=== PATIENT | female | born 1965 | race Caucasian/White ===

== ENCOUNTER → 2017-01-25 | Outpatient (CLI) | payer BC ==
[~2017-01-25] MED LIST: CARDIZEM30 MG PO
--- NOTE | ~2017-01-25 | ESTC ---
Cardiac Perfusion Imaging Demographics Patient Name CYNTHIA Reddy Gender Female Patient Number [id number] Race Visit Number [id number] Ethnicity [employer] ID Room Number Accession Number [id number] Height 64 inches Date of 1965 Weight 119 pounds Interpreting Mohan Bahena Date of study 01/25/2017 Physician Supervising /DAHIANAP Jeanne Laureano APRN NM Technologist Ordering Physician Mohan Bahena Stress interactive video technician Stress ECG Reading Jeanne Laureano APRN Nurse Aniceto Sosa Physician RN Medications Reviewed with Patient prior to Procedure. Procedure Admit Source:Other. Procedure Type: Nuclear Stress Test:Exercise, Cardiolite Stress Test Procedure Start time: 01/25/2017 08:32 Indications: Chest pain. Risk Factors The patient risk factors include:former tobacco use and family history of premature CAD. Conclusions Impression ECG portion of exercise stress test is clinically nondiagnostic for ischemia by diagnostic criteria due to bseline ST depression in leads, II, III, aVF and V4-6. Patient exercised on the treadmill for 11 min using Wes protocol. Myocardial perfusion imaging is normal at peak stress. The resting images are non diagnostic. Overall left ventricular systolic function was normal without regional wall motion abnormalities. Calculated LVEF is 86% and TID ratio is 75%. Stress Protocols Resting ECG Pre-stress physical exam: Patient assessed by Nupur SANCHEZ prior to testing. Chest - CTA Cardio - RRR, S1, S2 Predicted HR: 168 bpm ECG Findings Indeterminate ECG due to baseline abnormalities. Arrhythmias No rhythm abnormality. Symptoms Shortness of breath. Complications Procedure complication: None. Stress Interpretation Patient exercised for 11 minutes through 4 stages of WES protocol. Appropriate hemodynamic response to exercise. Significant ST-T wave changes with exercise, max ST depression 2mm from baseline resting depression of 1mm. EKG portion is indeterminate for ischemia by diagnostic criteria due to baseline abnormalities. The Randolph Treadmill score was 1 .This corresponds to a moderate risk stress test. Will correlate with nuclear images. Imaging Results Summed scores - Summed stress score: 0 - Summed rest score: 5 - Summed difference score: -5 Stress ejection Ejection fraction:75 % EDV :83 ml ESV :21 ml Stroke volume :62 ml LV mass :107 gr Imaging Protocols Rest Stress Isotope:Tc99m Sestamibi IV Isotope: Tc99m Sestamibi IV Isotope dose:10.1 mCi Isotope dose:30.6 mCi Date:01/25/2017 07:45 Technique: SPECT Technique: Gated Supine SPECT Supine Scan Time:30 minutes post injection Scan Time:45-60 minutes post injection Medical History Admission Data Admission date: 01/25/2017 Admission Time: 07:18 Hospital Status: Outpatient. Signatures dtt: LARA FITZPATRICK dtd: 01/25/17 0832
--- NOTE | ~2017-01-25 | ECHO ---
Transthoracic Echocardiography Report (TTE) Demographics Patient Name JACQUELINE MARIE Date of Study 01/25/2017 Patient Number [id number] Visit Number [id number] Date of 1965 Room Number Gender Female Number Age 51 year(s) Referring Mohan Bahena Line Installer Trolley Cherry Arredondo RVT Physician Physician Interpreting Mohan Bahena Family Practitioner Physician MD Supervising Ordering Mohan Bahena MD/MLP Physician Nurse Stress Head Banquet Waitress Conclusions Contractility Score Summary Normal Left Ventricular contractility was noted. Summary Normal LV/RV size and systolic function. The estimated left ventricular ejection fraction is 60-65%. Mild septal left ventricular hypertrophy. Mild mitral annular calcification. Mild MV prolapse. Trivial MR. Procedure Type of Study TTE procedure:2D Echocardiogram. Procedure Date Date: 01/25/2017 Start: 09:28 AM Study Location: Echo Lab Technical Quality: Adequate visualization Indications:Chest pain. Appropriate Use Criteria: 9 Patient Status: Routine HR: 83 bpm BP: 156/69 mmHg M-Mode/2D Measurements LV Diastolic Dimension: 3.47 cm LV Systolic Dimension: 2.08 cm LV Septum Diastolic: 1.41 cm LV PW Diastolic: 1.05 cm AO Root Dimension: 2.6 cm Cardiac Output: 5.58 l/min AV Cusp Separation: 1.5 cm RV Diastolic Dimension: 2.55 cm LVOT: 2 cm LVOT VTI: 21.4 cm RV Base: 2.31 cm LV Stroke volume: 67.2 ml RV Length: 6.38 cm TAPSE: 2.49 cm TDI-S': 15.4 cm/s Doppler Measurements AV Peak Velocity: 1.51 m/s MV Peak E-Wave: 0.87 m/s AV Peak Gradient: 9.12 mmHg MV Peak A-Wave: 0.62 m/s AV Mean Gradient: 4 mmHg MV E/A Ratio: 1.4 LVOT Peak Velocity: 1.15 m/s MV P1/2t: 48 msec TR Gradient:26.83 mmHg PV Peak Velocity: 0.9 m/s Estimated RAP:10 mmHg PV Peak Gradient: 3.23 mmHg Estimated RVSP: 37 mmHg Estimated PASP: 36.83 mmHg E' Septal Velocity: 0.09 m/s A' Septal Velocity: 0.11 m/s E' Lateral Velocity: 0.18 m/s A' Lateral Velocity: 0.14 m/s Findings Left Ventricle Mild septal left ventricular hypertrophy. Right Ventricle Normal right ventricle structure and function. Left Atrium Normal left atrial size. Right Atrium Normal right atrial size. Mitral Valve Mild mitral annular calcification. Mild mitral valve prolapse. Trivial mitral regurgitation by color Doppler. Aortic Valve Normal aortic valve structure and function. Tricuspid Valve Mild tricuspid regurgitation by color Doppler. There is mild pulmonary hypertension. The pulmonary pressure (RVSP) is 37 mmHg. Pulmonic Valve Normal pulmonic valve structure and function. Pericardial Effusion No evidence of pericardial effusion. Miscellaneous Visualized portions of the aortic root and ascending aorta appear normal in size. Pleural Effusion No evidence of pleural effusion. Contractility Score LV regional wall motion:(0-Non visualized 1-Normal 2-Hypokinesis 3-Akinesis 4-Dyskinesis 5-Aneurysm) Signature dtt: LARA FITZPATRICK dtd: 01/25/17 0928
[2017-01-25 08:11] LABS: ALBUMIN 3.6 gm/dL (3.5-5.0); ALK PHOS 58 IU/L (33-138); ALT 16 IU/L (12-78); ANION GAP 10.7 (10.0-19.0); AST 18 IU/L (10-40); BLOOD UREA NITROGEN 13 mg/dL (6-24); CALCIUM 8.1 mg/dL (8.5-10.5); CHLORIDE 109 mMol/L (96-110); CO2 25 mMol/L (22-32); CREATININE 0.7 mg/dL (0.5-1.1); ESTIMATED GFR (MDRD EQUATION) > 60; POTASSIUM 3.7 mMol/L (3.7-5.1); SODIUM 141 mMol/L (135-145); TOTAL PROTEIN 6.9 g/dL (6.0-8.4)
== END | disposition disaster alternative care site (69) ==
LOC: GRAD 07:18
PROVIDERS: Internal Medicine Interventional Cardiology
DX: R07.9 Chest pain, unspecified (principal); I25.10 Atherosclerotic heart disease of native coronary artery without angina pectoris; I34.1 Nonrheumatic mitral (valve) prolapse; I51.7 Cardiomegaly; R06.02 Shortness of breath; Z87.891 Personal history of nicotine dependence; Z82.49 Family history of ischemic heart disease and other diseases of the circulatory system
CPT/HCPCS: A9500

== ENCOUNTER → 2017-04-10 | Outpatient (CLI) | payer BC ==
[2017-04-10 08:38] LABS: ANION GAP 8.7 (10.0-19.0); BLOOD UREA NITROGEN 11 mg/dL (6-24); CALCIUM 8.6 mg/dL (8.5-10.5); CHLORIDE 108 mMol/L (96-110); CO2 27 mMol/L (22-32); CREATININE 0.7 mg/dL (0.5-1.1); POTASSIUM 3.7 mMol/L (3.7-5.1); SODIUM 140 mMol/L (135-145)
== END ==
LOC: LNHI 08:21
PROVIDERS: Internal Medicine Interventional Cardiology
DX: I20.9 Angina pectoris, unspecified (principal); R00.2 Palpitations
CPT/HCPCS: Q9967

== ENCOUNTER → 2017-04-10 | Outpatient (CLI) | payer BC ==
--- NOTE | ~2017-04-10 | OR ---
PATIENT'S NAME: JACQUELINE MARIE [facility] AGE: 51 Y [address] ROOM: [place] [address] LOCATION: [facility]OC ADMIT DATE: 04/10/2017 OR/Procedure Report DISCHARGE DATE: FAMILY PHYSICIAN: Ingris Mckeon MD ATTENDING PHYSICIAN: LARA FITZPTARICK SURGEON: Lucho Finley MD SUPERVISOR INSTRUMENT MAINTENANCE: DATE OF PROCEDURE: 04/10/2017 PROCEDURE PERFORMED: CT angiogram. INDICATION FOR STUDY: Chest pain. DESCRIPTION OF PROCEDURE: The procedure was described to the patient and informed consent was obtained. Calcium scoring analysis was performed using 64-slice CT scanner. The total Agatston score is 0. Coronary CT angiogram was then performed. The patient was given 100 mL of Isovue-[address] angiogram. FINDINGS: The left main coronary artery arises from the left coronary cusp. No significant disease was noted in the left main coronary artery. The left main coronary artery gives rise to left circumflex coronary artery and left anterior descending artery. The left anterior descending artery is a moderate- sized vessel and it gives rise to diagonal branches. No significant disease was noted in the left anterior descending artery and diagonal branches. The left circumflex coronary artery is a moderate-sized vessel. It gives rise to obtuse marginal branches. No significant disease noted in the circumflex coronary artery. The right coronary artery arises from the right coronary cusp. It is a moderate-sized dominant vessel. It divides into PDA and PLV branches. No significant disease was noted in the right coronary artery and its PDA and PLV branches. IMPRESSION: 1. The Agatston score is 0. 2. Coronary CT angiogram did not show any significant obstructive coronary artery disease. 3. The noncardiac findings will be reported separately by the radiologist. LUCHO FINLEY MD LY/modl PATIENT'S NAME: JACQUELINE MARIE [facility] AGE: 51 Y [address] ROOM: [place] [address] LOCATION: [facility]OC ADMIT DATE: 04/10/2017 OR/Procedure Report DISCHARGE DATE: FAMILY PHYSICIAN: Ingris Mckeon MD ATTENDING PHYSICIAN: LARA FITZPATRICK /[id number] d: 04/11/172 t: 04/21/17 1945, OPERATIVE SUMMARY
== END | disposition disaster alternative care site (69) ==
LOC: GPOC 02-20 11:00
PROC: B211YZZ Fluoroscopy of Multiple Coronary Arteries using Other Contrast (ICD-10-PCS; principal; 2017-04-10)
DX: I25.10 Atherosclerotic heart disease of native coronary artery without angina pectoris (principal)
CPT/HCPCS: J2001; J7030